=== PATIENT | female | born 1995 | race American Indian/Alaskan Native ===

== ENCOUNTER 2016-07-22 23:55 | Emergency (ER) | payer MEDICAID ==
[2016-07-23] MEDS ORDERED: ZOFRAN ONE (00:23)
[2016-07-23] MEDS ORDERED: ZOFRAN IV ONE (00:41)
[2016-07-23] MEDS ORDERED: NACL 0.9% 1000 ML 1,000 ML IV ONE (01:53)
[2016-07-23] MEDS ORDERED: TYLENOL PO ONE (01:54)
--- NOTE | 2016-07-23 01:55 | Emergency Department Report ---
ED N/V/D HPI - General Chief complaint: Nausea/Vomiting/Diarrhea Stated complaint: DIZZINESS Time Seen by Provider: 07/23/16 01:47 Source: patient, EMS Mode of arrival: Stretcher Limitations: No Limitations - History of Present Illness Initial comments: This is a 20-year-old female primary up at 31 weeks who reports vomiting some nausea starting today. She reports no abdominal pain or vaginal discharge or bleeding. She denies any dysuria symptoms. She states that she's been just very nauseous or other day. She still felt baby move throughout the day. She states that she had some questionable food yesterday and thinks that she may have some food poisoning. She denies fever associated with this though she has felt feverish at home. She does question whether she has influenza as well. She denies any specific sick contacts however. - Related Data Previous Rx's Medication Instructions Recorded Last Taken Type Acetaminophen/Codeine [Tylenol #3] 1 tab PO Q6H PRN #20 tab 01/05/15 Unknown Rx Acyclovir [Zovirax Tab] 800 mg PO 5XD #50 tab 01/05/15 Unknown Rx Ibuprofen [Motrin] 600 mg PO Q8H PRN #40 tablet 01/05/15 Unknown Rx metroNIDAZOLE [Flagyl] 500 mg PO Q12HR #20 tab 01/05/15 Unknown Rx Ondansetron [Zofran TAB] 4 mg PO Q8HR PRN #10 tablet 07/23/16 Unknown Rx Allergies Allergy/AdvReac Type Severity Reaction Status Date / Time Unable to Assess Allergy Unverified 07/23/16 00:07 ED Review of Systems ROS: Stated complaint: DIZZINESS Other details as noted in HPI Comment: All other systems reviewed and negative Constitutional: other (fatigue). denies: chills, fever Eyes: denies: eye pain, eye discharge, vision change ENT: denies: ear pain, throat pain Respiratory: denies: cough, shortness of breath, wheezing Cardiovascular: denies: chest pain, palpitations Endocrine: no symptoms reported Gastrointestinal: nausea, vomiting. denies: abdominal pain, diarrhea Genitourinary: denies: urgency, dysuria, discharge Musculoskeletal: denies: back pain, joint swelling, arthralgia Skin: denies: rash, lesions Neurological: denies: headache, weakness, paresthesias Psychiatric: denies: anxiety, depression Hematological/Lymphatic: denies: easy bleeding, easy bruising ED Past Medical Hx - Past Medical History Previous Medical History?: Yes Hx Hypertension: No Hx Diabetes: No Hx Deep Vein Thrombosis: No Hx Renal Disease: No Hx Sickle Cell Disease: No Hx Seizures: No Hx Asthma: No Additional medical history: PCOS, 31 weeks - Surgical History Past Surgical History?: No - Social History Smoking Status: Never Smoker Substance Use Type: None - Medications Home Medications: Home Medications Medication Instructions Recorded Confirmed Last Taken Type Acetaminophen/Codeine [Tylenol #3] 1 tab PO Q6H PRN #20 tab 01/05/15 Unknown Rx Acyclovir [Zovirax Tab] 800 mg PO 5XD #50 tab 01/05/15 Unknown Rx Ibuprofen [Motrin] 600 mg PO Q8H PRN #40 tablet 01/05/15 Unknown Rx metroNIDAZOLE [Flagyl] 500 mg PO Q12HR #20 tab 01/05/15 Unknown Rx Ondansetron [Zofran TAB] 4 mg PO Q8HR PRN #10 tablet 07/23/16 Unknown Rx ED Physical Exam - General Limitations: No Limitations General appearance: alert, in no apparent distress - Head Head exam: Present: atraumatic, normocephalic - Eye Eye exam: Present: normal appearance, EOMI. Absent: scleral icterus - ENT ENT exam: Present: normal exam, normal orophraynx, mucous membranes moist - Neck Neck exam: Present: normal inspection, full ROM. Absent: tenderness, lymphadenopathy - Respiratory Respiratory exam: Present: normal lung sounds bilaterally. Absent: respiratory distress - Cardiovascular Cardiovascular Exam: Present: regular rate, normal rhythm. Absent: systolic murmur, diastolic murmur, rubs, gallop - GI/Abdominal GI/Abdominal exam: Present: soft, normal bowel sounds, other (gravid uterus consistent with dates.). Absent: tenderness, guarding - Extremities Exam Extremities exam: Present: normal inspection. Absent: pedal edema, calf tenderness - Back Exam Back exam: Present: normal inspection. Absent: tenderness, CVA tenderness (R), CVA tenderness (L) - Neurological Exam Neurological exam: Present: alert, oriented X3 - Psychiatric Psychiatric exam: Present: normal affect, normal mood - Skin Skin exam: Present: warm, dry, intact, normal color. Absent: rash ED Course Vital Signs 07/23/16 07/23/1607/23/17 00:01 02:07 02:15 Temperature 98.9 F Pulse Rate 116 H Respiratory 18 20 20 Rate Blood Pressure 123/70 Blood Pressure [Left] O2 Sat by Pulse 99 99 Oximetry 07/23/16 04:11 Temperature 100.0 F H Pulse Rate 89 Respiratory 18 Rate Blood Pressure Blood Pressure 109/84 [Left] O2 Sat by Pulse 100 Oximetry - Reevaluation(s) Reevaluation #1: 07/23/16 20:04 heart tones are noted to be 160s and reactive. Abdomen is very benign here. From a gynecologic OB standpoint to have very little concern for specific stressor on baby at this time that is directly OB related. I think the best treated weighted treat baby is to help mother primarily. She is euvolemic appearing here. I still did establish IV and gave her IV fluids to help control the nausea. This was done with good effect. Per patient requested a test for flu. This was negative. Other lab studies were noted. They were unremarkable. In general I have low suspicion for concerning pathology with this patient. She does appear to be a young Mother and will likely have a lot of growing experience with this . I did encourage her to be very careful with her diet and return if she has any N concerning findings such as abdominal pains and cramping or vaginal bleeding. ED Medical Decision Making - Lab Data Result diagrams: 07/23/16 02:11 07/23/16 02:11 Critical care attestation.: If time is entered above; I have spent that time in minutes in the direct care of this critically ill patient, excluding procedure time. ED Disposition Clinical Impression: Vomiting Qualifiers: Vomiting type: unspecified Vomiting Intractability: non-intractable Nausea presence: with nausea Qualified Code(s): R11.2 - Nausea with vomiting, unspecified Disposition: DISCHARGED TO HOME OR SELFCARE Is pt being admited?: No Does the pt Need Aspirin: No Condition: Stable Instructions: Acute Nausea and Vomiting (ED) Additional Instructions: Drink plenty of fluids. Gradually advance your diet as tolerated. Take Tylenol as needed for pains and fever. Return to the ED or follow your doctor if her symptoms continue. Prescriptions: Ondansetron [Zofran TAB] 4 mg PO Q8HR PRN #10 tablet PRN Reason: Nausea Referrals: PRIMARY CARE, [Primary Care Provider] - 3-5 Days Time of Disposition: 03:57
[2016-07-23 02:33] LABS: Basophils % (Auto) 0.6 % (0.0-1.8); Eosinophils % (Auto) 1.7 % (0.0-4.3); Hematocrit 33.2 % (30.3-42.9); Hemoglobin 10.8 gm/dl (10.1-14.3); Mean Corpuscular HGB Conc 33 % (30-34); Mean Corpuscular Hemoglobin 30 pg (28-32); Mean Corpuscular Volume 91 fl (79-97); Platelet Count 236 K/mm3 (140-440); Red Blood Count 3.64 M/mm3 (3.65-5.03); Red Cell Distribution Width 13.6 % (13.2-15.2); White Blood Count 10.4 K/mm3 (4.5-11.0)
[2016-07-23 02:44] LABS: Alanine Aminotransferase 8 units/L (7-56); Albumin/Globulin Ratio 0.9 %; Alkaline Phosphatase 99 units/L (35-129); Anion Gap 17 mmol/L; Bilirubin,Total 0.3 mg/dL (0.1-1.2); Blood Urea Nitrogen 5 mg/dL (7-17); Calcium 8.3 mg/dL (8.4-10.2); Carbon Dioxide 21 mmol/L (22-30); Glucose 81 mg/dL (65-100); Lipase 26 units/L (13-60); Potassium 3.3 mmol/L (3.6-5.0); Sodium 138 mmol/L (137-145); Total Protein 6.4 g/dL (6.3-8.2)
[2016-07-23 04:12] VITALS: BP 109/84
== END 2016-07-23 04:11 | disposition home or self-care (01) ==
LOC: ED 23:55
DX: R11.2 Nausea with vomiting, unspecified (principal)
CPT/HCPCS: 36415; 80053; 83690; 85025; 87400; 96361; 96374; 99284; J2405; J7030

== ENCOUNTER 2017-04-21 14:27 | Emergency (ER) | payer MEDICAID ==
[2017-04-21 14:54] VITALS: BP 109/70
[2017-04-21 15:48] LABS: Alanine Aminotransferase 15 units/L (7-56); Albumin 4.2 g/dL (3.9-5); BUN/Creatinine Ratio 20; Blood Urea Nitrogen 12 mg/dL (7-17); Calcium 9.3 mg/dL (8.4-10.2); Hemolysis Index 6
[2017-04-21 15:50] LABS: Basophils % (Auto) 0.2 % (0.0-1.8); Eosinophils # (Auto) 0.1 K/mm3 (0.0-0.4); Eosinophils % (Auto) 1.9 % (0.0-4.3); Hematocrit 43.9 % (30.3-42.9); Hemoglobin 14.4 gm/dl (10.1-14.3); Lymphocytes # (Auto) 1.2 K/mm3 (1.2-5.4); Lymphocytes % (Auto) 16.4 % (13.4-35.0); Mean Corpuscular HGB Conc 33 % (30-34); Mean Corpuscular Hemoglobin 30 pg (28-32); Mean Corpuscular Volume 91 fl (79-97); Monocytes # (Auto) 0.7 K/mm3 (0.0-0.8); Monocytes % (Auto) 8.7 % (0.0-7.3); Platelet Count 282 K/mm3 (140-440); Red Blood Count 4.81 M/mm3 (3.65-5.03); Red Cell Distribution Width 14.5 % (13.2-15.2)
== END 2017-04-22 02:45 | disposition left against medical advice (07) ==
LOC: ED 14:27
DX: R10.9 Unspecified abdominal pain (principal); Z53.21 Procedure and treatment not carried out due to patient leaving prior to being seen by health care provider
CPT/HCPCS: 36415; 80053; 85025

== ENCOUNTER 2018-01-03 14:37 | Emergency (ER) | payer MEDICAID ==
[2018-01-03 14:53] VITALS: BP 140/74
[2018-01-03] MEDS ORDERED: XANAX PO ONE (15:20)
--- NOTE | 2018-01-03 15:25 | Emergency Department Report ---
ED Psych HPI - General Chief Complaint: Altered Mental Status Stated Complaint: FALL/AMS Time Seen by Provider: 01/03/18 15:05 Source: family, EMS Mode of arrival: Stretcher - History of Present Illness Initial Comments: Patient is a 22-year-old Female is here with her boyfriend. Patient lost her job this morning when she got home she started to hyperventilate and then fell to the ground. Patient is poorly verbal sense. She will shake her head yes or no but is choosing not to speak. Her friend states she believes she had a panic attack. Patient has been afebrile was moving all extremities spontaneously was able to walk. She just looks sad and withdrawn and states she doesn't feel like talking. Patient when asked what she also suicidal shake her head no MD Complaint: feels depressed - Related Data Previous Rx's Medication Instructions Recorded Last Taken Type Acetaminophen/Codeine [Tylenol #3] 1 tab PO Q6H PRN #20 tab 01/05/15 Unknown Rx Acyclovir [Zovirax Tab] 800 mg PO 5XD #50 tab 01/05/15 Unknown Rx Ibuprofen [Motrin] 600 mg PO Q8H PRN #40 tablet 01/05/15 Unknown Rx metroNIDAZOLE [Flagyl] 500 mg PO Q12HR #20 tab 01/05/15 Unknown Rx Ondansetron [Zofran TAB] 4 mg PO Q8HR PRN #10 tablet 07/23/16 Unknown Rx ALPRAZolam [Xanax TAB] 0.25 mg PO BID PRN #6 tablet 01/03/18 Unknown Rx Allergies Allergy/AdvReac Type Severity Reaction Status Date / Time Unable to Assess Allergy Unverified 07/23/16 00:07 ED Review of Systems ROS: Stated complaint: FALL/AMS Other details as noted in HPI Comment: All other systems reviewed and negative ED Past Medical Hx - Past Medical History Hx Hypertension: No Hx Diabetes: No Hx Deep Vein Thrombosis: No Hx Renal Disease: No Hx Sickle Cell Disease: No Hx Seizures: No Hx Asthma: No Additional medical history: PCOS, 31 weeks - Social History Smoking Status: Never Smoker Substance Use Type: None - Medications Home Medications: Home Medications Medication Instructions Recorded Confirmed Last Taken Type Acetaminophen/Codeine [Tylenol #3] 1 tab PO Q6H PRN #20 tab 01/05/15 Unknown Rx Acyclovir [Zovirax Tab] 800 mg PO 5XD #50 tab 01/05/15 Unknown Rx Ibuprofen [Motrin] 600 mg PO Q8H PRN #40 tablet 01/05/15 Unknown Rx metroNIDAZOLE [Flagyl] 500 mg PO Q12HR #20 tab 01/05/15 Unknown Rx Ondansetron [Zofran TAB] 4 mg PO Q8HR PRN #10 tablet 07/23/16 Unknown Rx ALPRAZolam [Xanax TAB] 0.25 mg PO BID PRN #6 tablet 01/03/18 Unknown Rx ED Physical Exam - General Limitations: No Limitations General appearance: alert, in no apparent distress - Head Head exam: Present: atraumatic, normocephalic - Eye Eye exam: Present: normal appearance - ENT ENT exam: Present: mucous membranes moist - Neck Neck exam: Present: normal inspection - Respiratory Respiratory exam: Present: normal lung sounds bilaterally. Absent: respiratory distress, wheezes, rales, rhonchi - Cardiovascular Cardiovascular Exam: Present: regular rate, normal rhythm. Absent: systolic murmur, diastolic murmur, rubs, gallop - GI/Abdominal GI/Abdominal exam: Present: soft, normal bowel sounds. Absent: distended, tenderness, guarding, rebound - Extremities Exam Extremities exam: Present: normal inspection - Back Exam Back exam: Present: normal inspection - Neurological Exam Neurological exam: Present: alert, oriented X3 - Psychiatric Psychiatric exam: Present: normal affect, depressed, other (patient is able to follow commands) - Skin Skin exam: Present: warm, dry, intact, normal color. Absent: rash ED Course Vital Signs 01/03/18 14:47 Temperature 98.6 F Pulse Rate 93 H Blood Pressure 140/74 O2 Sat by Pulse 97 Oximetry ED Medical Decision Making - Medical Decision Making Patient is able to comprehend everything is being sedated and was able to speak once. Patient doesn't appear depressed but is not homicidal suicidal. Patient be discharged home at this time with 6 Xanax and follow with her neck or hospital if necessary. Critical care attestation.: If time is entered above; I have spent that time in minutes in the direct care of this critically ill patient, excluding procedure time. ED Disposition Clinical Impression: Stress, Anxiety reaction Disposition: DC-01 TO HOME OR SELFCARE Is pt being admited?: No Does the pt Need Aspirin: No Condition: Stable Instructions: Stress (ED) Prescriptions: ALPRAZolam [Xanax TAB] 0.25 mg PO BID PRN #6 tablet PRN Reason: anxiety Time of Disposition: 15:28
== END 2018-01-03 15:32 | disposition home or self-care (01) ==
LOC: ED 14:37
DX: O99.343 Other mental disorders complicating pregnancy, third trimester (principal); F41.9 Anxiety disorder, unspecified; F43.9 Reaction to severe stress, unspecified; Z3A.31 31 weeks gestation of pregnancy
CPT/HCPCS: 99283